=== PATIENT | female | born 1940 | race Caucasian/White ===

== ENCOUNTER 2017-11-26 13:47 | Outpatient (CLI) | payer MEDICARE ==
--- NOTE | 2017-12-01 09:42 | Mammography Report ---
Reason: SCREENING MAMMO Procedure Date: 11/26/2017 Accession Number: [id number] / [id number] Procedure: FLY - Screening Mammo Dig Bilat CPT Code: FULL RESULT: EXAM: Screening Mammo Dig Bilat DATE: 11/26/2017 3:36 PM CLINICAL HISTORY: Screening mammogram TECHNIQUE: Bilateral CC and MLO views were obtained. COMPARISON: Mammogram 08/23/2014 FINDINGS: There are scattered fibroglandular densities. There are benign-appearing calcifications and lymph nodes. No suspicious masses, clustered microcalcifications, or regions of architectural distortion are identified. IMPRESSION: Benign findings RECOMMENDATION: Routine annual screening unless otherwise clinically indicated. BIRADS CATEGORY 2: Benign findings STANDARD QUALIFYING STATEMENTS: 1. This examination was reviewed with the aid of Computer-Aided Detection (CAD). 2. A negative or benign imaging report should not delay biopsy if clinically suspicious findings are present. Consider surgical consultation if warrented. More than 5% of cancers are not identified by imaging. 3. Dense breasts may obscure an underlying neoplasm.
== END 2017-11-26 13:48 | disposition home or self-care (01) ==
LOC: DI 13:47
PROVIDERS: ATTEND Family Medicine
DX: Z12.31 Encounter for screening mammogram for malignant neoplasm of breast (principal)
CPT/HCPCS: 77067